=== PATIENT | male | born 1995 | race Caucasian/White ===

== ENCOUNTER 2016-11-17 16:22 | Emergency (ER) | payer OTHER ==
[~2016-11-17] VITALS: Ht 172.7 cm; Wt 98.6 kg
[~2016-11-17 16:22] MED LIST: CEPH-443 PO
[2016-11-17] MEDS ORDERED: KETOROLAC 30 MG INJ IM STA (16:50)
[2016-11-17 16:51] VITALS: Ht 172.7 cm; Wt 98.6 kg
[2016-11-17] MEDS ORDERED: OXYCODONE/ACETAMINOPHEN (5/325) TAB PO ONE (17:00)
[2016-11-17 17:06] VITALS: BP 134/84; PULSE 75; RESP 18
[2016-11-17] MEDS ORDERED: IBUP-1542 PO (17:13)
--- NOTE | 2016-11-17 17:18 | RADRPT ---
PROCEDURE: XR Knee 2 Views. CLINICAL INDICATION: Right knee pain. TECHNIQUE: AP and cross-table lateral view of the right knee were obtained. The images reviewed o n a PACS workstation. COMPARISON: None. FINDINGS: Lateral dislocation of the patella is identified. The osseous structures appear intact. No destruct candida bony lesions are observed. Remaining interosseous spaces are unremarkable. Soft tissues are un remarkable. IMPRESSION: Lateral dislocation of the patella. If there is high clinical suspicion for bony traumatic injury, further evaluation with CT should be considered. RPTAT: AA .Rashid Grant MD, MD Date Time Electronically viewed and signed by .Rashid Grant MD, on 11/17/2016 17:17 .P/
--- NOTE | 2016-11-17 17:51 | RADRPT ---
PROCEDURE: XR Knee 3 Views. CLINICAL INDICATION: Status post patellar reduction. TECHNIQUE: AP, lateral and sunrise view of the right knee were obtained. The images reviewed on a PACS workstation. COMPARISON: None. FINDINGS: The osseous structures are intact. No destructive bony lesions are observed. There has been interv al reduction of the patella. The patella appears in normal alignment. Soft tissues are unremarkable . IMPRESSION: Interval patella reduction. Osseous structures appear in normal alignment. If there is high clinical suspicion for bony traumatic injury, further evaluation with CT should be considered. RPTAT: AA .Rashid Grant MD, Date Time Electronically viewed and signed by .Rashid Grant MD, MD on 11/17/2016 17:51 .P/
--- NOTE | 2016-11-19 07:02 | ERD ---
ER Documentation Chief Complaint Date/Time DATE: 11/19/16 TIME: 06:58 Chief Complaint RIGHT KNEE DISLOCATION, "POPPED OUT OF PLACE" WHILE JUMPING OFF WORK TRUCK HPI 21-year-old man brought in by EMS after injury to the right knee while jumping up onto his armored truck. He states a heavy metal bar struck his knee while he was jumping up into the back of the truck. He suspects knee dislocation, he could not ambulate after this injury. He has suffered previous needle dislocation once before. He denies head or neck injury, no paresis or paresthesias. Patient was placed in an air splint and transported here without further complications. ROS All systems reviewed and are negative except as per history of present illness. Medications Home Meds Active Scripts Ibuprofen* (Ibuprofen*) 600 Mg Tablet, 600 MG PO Q8 for PAIN AND/OR INFLAMMATION , #30 TAB Prov:LORI DENNIS MD 11/17/16 Cephalexin* (Keflex*) 500 Mg Capsule, 500 MG PO QID for 5 Days, CAP Prov:MARIAM PRICE PA-C 07/19/15 Allergies Allergies: Coded Allergies: No Known Allergy (Unverified , 09/25/11) PMhx/Soc None Medical and Surgical Hx: pt denies Medical Hx, pt denies Surgical Hx History of Surgery: No Anesthesia Reaction: No Hx Neurological Disorder: No Hx Respiratory Disorders: No Hx Cardiac Disorders: No Hx Psychiatric Problems: No Hx Miscellaneous Medical Probl: No Hx Alcohol Use: No Hx Substance Use: No Hx Tobacco Use: No Smoking Status: Never smoker FmHx Family History: No diabetes Physical Exam Vitals Vital Signs Date Time Temp Pulse Resp B/P Pulse Ox O2 Delivery O2 Flow Rate FiO2 11/17/16 17:06 75 18 134/84 100 Room Air 11/17/16 16:51 99.1 81 18 134/84 99 Physical Exam GENERAL: Well-developed, well-nourished, in moderate pain, afebrile HEENT: Moist mucous membranes, pink conjunctiva, no cervical spine tenderness or step-off deformities, no goiter, no jaundice or icterus, extraocular movements intact without pain. No submandibular induration, and no pharyngeal erythema NEURO: Alert and oriented 3, cranial nerves II through XII intact bilaterally, pupils equal round reactive to light, no focal deficits or facial asymmetry, sensation intact distally Strength 5/5 in upper and lower extremities bilaterally CARDIAC: Regular rate and rhythm, no murmurs rubs or gallops LUNGS: Clear bilaterally no wheezing crackles or stridor ABDOMEN: Soft nontender, no guarding, no rigidity, no rebound, no psoas sign no obturator sign. Normoactive bowel sounds SKIN: Warm and dry to touch, no abrasions, contusions, or hematomas, no lacerations, no ecchymosis, no target lesions, and without ulcers EXTREMITIES: Laterally dislocated patella on the right with skin tenting, no hematoma or ecchymosis noted, distal pulses equal bilateral PSYCH: Normal affect without agitation or irritability Results 24 hrs Current Medications Medications (Trade) Dose Ordered Sig/Harshad Route PRN Reason Start Time Stop Time Status Last Admin Dose Admin Ketorolac Tromethamine (Toradol) 30 mg ONCE STAT IM 11/17/16 16:50 11/17/16 16:51 DC 11/17/16 17:10 Oxycodone/ Acetaminophen (Percocet (5/ 325)) 1 tab ONCE ONCE PO 11/17/16 17:00 11/17/16 17:01 DC 11/17/16 17:10 Procedures/MDM I administered Toradol 30 mg intramuscular injection and Percocet 1 tablet p.o. Three-view x-ray of the right knee was performed, read by me no acute fracture noted, there is patellar dislocation. Manual reduction of the right patella was performed by me causing normal alignment at the knee and resolution of pain. Distal pulses were reassessed and remained normal, there was no popliteal hematoma or discomfort noted on examination, no popliteal cord sign, no popliteal thrills palpated, calves are bilaterally symmetrical post reduction. Three-view x-ray of the right knee was performed postreduction, it appeared normal, no acute fracture dislocation noted. I splinted the patient's right knee with Fabio elastic bandage. Splint Assessment : Neurovascularly intact post splint placement with good fit. Patient feels much better at this time, and vital signs are normal, symptoms have improved. I did give strict instructions to return to the ED if symptoms continue or worsen, patient will otherwise follow-up with primary care physician. Patient understood instructions and agreed to plan. Disclaimer: Inadvertent spelling and grammatical errors are likely due to EHR/ dictation software use and do not reflect on the overall quality of patient care. Also, please note that the electronic time recorded on this note does not necessarily reflect the actual time of the patient encounter. Departure Diagnosis: Primary Impression: Knee dislocation Encounter type: initial encounter Laterality: right Qualified Code: S83.104A - Dislocation of right knee, initial encounter Condition: Good Patient Instructions: Knee Pain, Meniscus Injury (Possible), Knee Sprain LORI DENNIS MD Nov 19, 2016 07:02
== END 2016-11-17 17:49 | disposition home or self-care (01) ==
LOC: E/R 16:22
DX: S83.104A Unspecified dislocation of right knee, initial encounter (principal); X50.9XXA Other and unspecified overexertion or strenuous movements or postures, initial encounter; Y92.9 Unspecified place or not applicable
CPT/HCPCS: 27550; 73560; 96372; 99284; J1885